=== PATIENT | female | born 1955 | race Caucasian/White ===

== ENCOUNTER 2019-09-02 12:19 | Emergency (ER) | payer BC ==
[2019-09-02 14:16] LABS: Absolute Lymphocytes (CBC) 4.6 K/uL (0.7-4.9); Basophils % 0.8 % (0-1.3); Hematocrit 43.6 % (36.0-45.0); Lymphocytes % 37.9 % (15.3-44.8); MPV 7.8 fL (7.6-11.3); RBC Red Blood Cell Count 5.04 M/uL (3.86-4.86)
--- NOTE | 2019-09-02 14:17 | RAD REPORT ---
EXAM DESCRIPTION: US - Abdomen Exam Limited - 09/02/2019 1:48 pm CLINICAL HISTORY: Abdominal pain. COMPARISON: None. FINDINGS: The gallbladder wall is not thickened. A gallstone is not seen. The biliary tree is normal caliber. IMPRESSION: Unremarkable gallbladder ultrasound.
[2019-09-02] MEDS ORDERED: NA CHLORIDE 0.9% 1,000 ML ONE (14:19)
[2019-09-02 14:33] LABS: Urine Blood NEGATIVE (NEG); Urine Glucose NEGATIVE (NEG); Urine Protein NEGATIVE (NEG)
[2019-09-02 14:36] LABS: ALT/SGPT 36 U/L (12-78); AST/SGOT 22 U/L (15-37); Albumin 3.4 g/dL (3.4-5.0); Alkaline Phosphatase 90 U/L (45-117); BUN Blood Urea Nitrogen 7 mg/dL (7-18); Bicarbonate 27 mmol/L (21-32); Bilirubin Direct < 0.1 mg/dL (0-0.2); Bilirubin Total 0.3 mg/dL (0.2-1.0); Glucose Level 62 mg/dL (74-106); Lipase 75 U/L (73-393); Potassium 3.8 mmol/L (3.5-5.1); Protein, Total 7.5 g/dL (6.4-8.2); Sodium Level 140 mmol/L (136-145)
--- NOTE | 2019-09-02 15:18 | RAD REPORT ---
EXAM DESCRIPTION: CT - Abdomen Pelvis W Contrast - 09/02/2019 2:54 pm CLINICAL HISTORY: ABD PAIN COMPARISON: No comparisons TECHNIQUE: Biphasic, helical CT imaging of the abdomen and pelvis was performed following 100 ml non -ionic IV contrast. No oral contrast given. All CT scans are performed using dose optimization technique as appropriate and may include automated exposure control or mA/KV adjustment according to patient size. FINDINGS: No suspicious findings in the lung bases. The liver, spleen, and pancreas show no suspicious findings. Gallbladder and biliary tree are also wi thout suspicious finding. Renal function is symmetric. No pyelonephritis or acute renal parenchymal process. There is minimal d ilatation of the right collecting system when compared to the left. A punctate 2 millimeter calcifica tion is seen in the pelvis believed to be adjacent to but not within the ureter. The patient has li ral phleboliths. The kidneys show no solid mass lesion. No bladder abnormalities. No adrenal abnormal ities. Uterus absent. Ovaries are absent or atrophic. No adnexal mass. Stomach and small bowel show no acute findings. Moderate stool volume present in the colon from cecum through descending colon. Higgins of the rectum and distal most sigmoid colon show slight thickening w ith stranding extending to the adjacent fat. No focal mass. This is most likely a mild colitis. Patie nt has very minimal diverticulosis more proximally in the colon. No free air, free fluid or pneumatosis. No hernia, mass or bulky lymphadenopathy. No suspicious bony findings. IMPRESSION: Mild colitis pattern involving the rectum and distal most sigmoid colon. No mass, free a ir or other emergent finding.
--- NOTE | 2019-09-02 15:35 | ER ---
Nurse's Notes [facility] Name: Iris Jerome Age: 64 yrs Sex: Female : 1955 Arrival Date: 09/02/2019 Time: 12:25 Bed 24 Private MD: Diagnosis: Diarrhea, unspecified;Left sided colitis Presentation: 09/02 12:45 Presenting complaint: Patient states: Diarrhea for 16 days. On Friday I called my PCP, charmaine and they told me to start Imodium. It helped a little bit but it starts all over again. I called them again today and they think it might be my gall bladder. I am having dull pain on my R upper abdomen, that comes and goes. Reports fever in the beginning but not at this time. Denies N/V, urinary symptoms. Transition of care: patient was not received from another setting of care. Onset of symptoms was September 02, 2019. Risk Assessment: Do you want to hurt yourself or someone else? Patient reports no desire to harm self or others. Initial Sepsis Screen: Does the patient meet any 2 criteria? No. Patient's initial sepsis screen is negative. Does the patient have a suspected source of infection? No. Patient's initial sepsis screen is negative. Care prior to arrival: None. 12:45 Method Of Arrival: Ambulatory ca1 12:45 Acuity: ALICE 3 ca1 Historical: - Allergies: 12:50 No Known Allergies; ca1 - PMHx: 12:50 Hypertension; Diabetes - NIDDM; ca1 - PSHx: 12:50 Knee surgery; Hysterectomy; Tubal ligation; ca1 - Immunization history:: Adult Immunizations up to date, Pneumococcal vaccine is up to date, Flu vaccine is up to date. - Coronavirus screen:: The patient has NOT traveled to [place], [place], or [place] in the past 14 days. The patient has NOT had contact with known/suspected case of Coronavirus?. - Social history:: Smoking status: Patient denies any tobacco usage or history of. - Family history:: not pertinent. - Ebola Screening: : Patient negative for fever greater than or equal to 101.5 degrees Fahrenheit, and additional compatible Ebola Virus Disease symptoms Patient denies exposure to infectious person Patient denies travel to an Ebola-affected area in the 21 days before illness onset No symptoms or risks identified at this time. - Hospitalizations: : No recent hospitalization is reported. Screenin:22 Abuse screen: Denies threats or abuse. Nutritional screening: No deficits noted. vc Tuberculosis screening: No symptoms or risk factors identified. Fall Risk None identified. Assessment: 13:00 General: Appears in no apparent distress. comfortable, ill, Behavior is calm, vc cooperative, appropriate for age. Pain: Complains of pain in right upper quadrant. Neuro: Level of Consciousness is awake, alert, obeys commands, Oriented to person, place, time. Cardiovascular: Patient's skin is warm and dry. Respiratory: Airway is patent Respiratory effort is even, unlabored. GI: Abdomen is non-distended, Stools are reported to be diarrhea. : Urine is clear. EENT: No signs and/or symptoms were reported regarding the EENT system. Derm: Skin is intact, is healthy with good turgor. Musculoskeletal: Circulation, motion, and sensation intact. Range of motion: intact in all extremities. 13:21 Reassessment: Patient and/or family updated on plan of care and expected duration. Pain vc level reassessed. Patient is alert, oriented x 3, equal unlabored respirations, skin warm/dry/pink. Provider at bedside. 13:30 Reassessment: Patient to US via Wheelchair. vc 13:47 Reassessment: Back from US. vc 14:27 Reassessment: Patient and/or family updated on plan of care and expected duration. Pain vc level reassessed. Patient is alert, oriented x 3, equal unlabored respirations, skin warm/dry/pink. IV infiltrated. IV removed, tip intact. 15:27 Reassessment: provider at bedside. vc 16:30 Reassessment: Patient and/or family updated on plan of care and expected duration. Pain vc level reassessed. Patient is alert, oriented x 3, equal unlabored respirations, skin warm/dry/pink. Neuro: Level of Consciousness is awake, alert, obeys commands, Oriented to person, place, time, situation. 16:37 Reassessment: Antibiotics infusing. vc Vital Signs: 12:50 BP 100 / 63; Pulse 87; Resp 19 S; Temp 98.1(O); Pulse Ox 95% on R/A; Weight 75.75 kg ca1 (R); Height 5 ft. 6 in. (167.64 cm) (R); Pain 0/10; 14:00 BP 105 / 64; Pulse 90; Resp 18; Pulse Ox 97% on R/A; vc 15:00 BP 108 / 66; Pulse 85; Resp 19; Pulse Ox 97% on R/A; vc 16:00 BP 102 / 63; Pulse 88; Resp 18; Pulse Ox 100% on R/A; vc 12:50 Body Mass Index 26.95 (75.75 kg, 167.64 cm) ca1 ED Course: 12:25 Patient arrived in ED. ag5 12:48 Triage completed. ca1 12:50 Arm band placed on right wrist. ca1 12:56 Glo Perez, RN is Primary Nurse. vc 13:10 Jose Jackson MD is Attending Physician. rn 13:22 Patient has correct armband on for positive identification. Bed in low position. Call vc light in reach. 13:54 US Abdomen Limited In Process Unspecified. EDMS 14:10 Inserted saline lock: 22 gauge in right antecubital area, using aseptic technique. vc Blood collected. 14:30 Inserted saline lock: 22 gauge in right forearm, using aseptic technique. jp3 14:55 CT Abd/Pelvis - IV Contrast Only In Process Unspecified. EDMS 16:55 No provider procedures requiring assistance completed. IV discontinued, intact, vc bleeding controlled, No redness/swelling at site. Pressure dressing applied. Administered Medications: 14:10 Drug: NS 0.9% 1000 ml Route: IV; Rate: 1000 ml; Site: right antecubital; vc 15:40 Drug: Cipro 400 mg Volume: 200 ml; Route: IVPB; Infused Over: 60 mins; Site: right vc wrist; 15:40 Drug: Flagyl 500 mg Volume: 100 ml; Route: IVPB; Rate: 200 ml/hr; Infused Over: 30 vc mins; Site: right wrist; Outcome: 15:34 Discharge ordered by . rn 16:55 Discharged to home ambulatory. vc 16:55 Condition: good 16:55 Discharge instructions given to patient, Instructed on discharge instructions, follow up and referral plans. medication usage, Demonstrated understanding of instructions, follow-up care, medications, Prescriptions given X 2. 16:56 Patient left the ED. vc Signatures: Dispatcher [employer] EDMS Jose Jackson MD MD rn Pisarski, Jacob jp3 Desiree Gayle RN RN ca1 Mckenna Tao ag5 Glo Perez RN RN vc Corrections: (The following items were deleted from the chart) 13:21 Reassessment: Provider at bedside. vc cabrera 14:27 Reassessment: IV infiltrated. IV removed, tip intact. vc
--- NOTE | 2019-09-02 15:35 | EDPHYS ---
Physician Documentation [facility] Name: Iris Jerome Age: 64 yrs Sex: Female : 1955 Arrival Date: 09/02/2019 Time: 12:25 Bed 24 Private MD: ED Physician Jose Jackson HPI: 09/02 14:53 This 64 yrs old Female presents to ER via Ambulatory with complaints of rn Diarrhea, Side Pain. 14:53 The patient presents to the emergency department with diarrhea, abdominal pain, of the rn right upper quadrant. 14:54 Onset: The symptoms/episode began/occurred 2 week(s) ago. Possible causes: unknown. The rn symptoms are aggravated by nothing. The symptoms are alleviated by nothing. Severity of symptoms: At their worst the symptoms were mild in the emergency department the symptoms are unchanged. The patient has not experienced similar symptoms in the past. The patient has not recently seen a physician. 14:54 Reports diarrhea for 2 weeks, non-bloody, no fever, no vomiting, + mild right sided abd rn pain. No travel. . Historical: - Allergies: 12:50 No Known Allergies; ca1 - PMHx: 12:50 Hypertension; Diabetes - NIDDM; ca1 - PSHx: 12:50 Knee surgery; Hysterectomy; Tubal ligation; ca1 - Immunization history:: Adult Immunizations up to date, Pneumococcal vaccine is up to date, Flu vaccine is up to date. - Coronavirus screen:: The patient has NOT traveled to [place], [place], or [place] in the past 14 days. The patient has NOT had contact with known/suspected case of Coronavirus?. - Social history:: Smoking status: Patient denies any tobacco usage or history of. - Family history:: not pertinent. - Ebola Screening: : Patient negative for fever greater than or equal to 101.5 degrees Fahrenheit, and additional compatible Ebola Virus Disease symptoms Patient denies exposure to infectious person Patient denies travel to an Ebola-affected area in the 21 days before illness onset No symptoms or risks identified at this time. - Hospitalizations: : No recent hospitalization is reported. ROS: 14:54 Constitutional: Negative for fever, chills, and weight loss, Eyes: Negative for injury, rn pain, redness, and discharge, Cardiovascular: Negative for chest pain, palpitations, and edema, Respiratory: Negative for shortness of breath, cough, wheezing, and pleuritic chest pain, Abdomen/GI: Negative for nausea, vomiting, and constipation, MS/Extremity: Negative for injury and deformity, Skin: Negative for injury, rash, and discoloration, Neuro: Negative for headache, weakness, numbness, tingling, and seizure. Exam: 14:54 Constitutional: This is a well developed, well nourished patient who is awake, alert, rn and in no acute distress. Head/Face: Normocephalic, atraumatic. ENT: MMM Cardiovascular: Regular rate and rhythm. No pulse deficits. Respiratory: No increased work of breathing, no retractions or nasal flaring. Abdomen/GI: soft, non-tender, non-distended MS/ Extremity: Pulses equal, no cyanosis. Neurovascular intact. Full, normal range of motion. Equal circumference. Neuro: Awake and alert, GCS 15, oriented to person, place, time, and situation. Cranial nerves II-XII grossly intact. Motor strength 5/5 in all extremities. Sensory grossly intact. Vital Signs: 12:50 BP 100 / 63; Pulse 87; Resp 19 S; Temp 98.1(O); Pulse Ox 95% on R/A; Weight 75.75 kg ca1 (R); Height 5 ft. 6 in. (167.64 cm) (R); Pain 0/10; 14:00 BP 105 / 64; Pulse 90; Resp 18; Pulse Ox 97% on R/A; vc 15:00 BP 108 / 66; Pulse 85; Resp 19; Pulse Ox 97% on R/A; vc 16:00 BP 102 / 63; Pulse 88; Resp 18; Pulse Ox 100% on R/A; vc 12:50 Body Mass Index 26.95 (75.75 kg, 167.64 cm) ca1 MDM: 13:10 Patient medically screened. rn 15:31 Differential diagnosis: Nonspecific abd pain, colitis. Data reviewed: vital signs, rn nurses notes, lab test result(s), radiologic studies, CT scan, ultrasound. Counseling: I had a detailed discussion with the patient and/or guardian regarding: the historical points, exam findings, and any diagnostic results supporting the discharge/admit diagnosis, lab results, radiology results, the need for outpatient follow up, to return to the emergency department if symptoms worsen or persist or if there are any questions or concerns that arise at home. Response to treatment: the patient's symptoms have mildly improved after treatment, and as a result, I will discharge patient. Special discussion: Based on the patient's Hx, exam, and Dx evaluation, there is no indication for emergent surgery or inpatient Tx. It is understood by the patient/guardian that if the Sx's persist or worsen they need to return immediately for re-evaluation. I discussed with the patient/guardian in detail that at this point there is no indication for admission to the hospital. It is understood, however, that if the symptoms persist or worsen the patient needs to return immediately for re-evaluation. 09/02 13:23 Order name: Basic Metabolic Panel; Complete Time: 14:54 09/02 13:23 Order name: CBC with Diff rn 09/02 13:23 Order name: Creatinine for Radiology; Complete Time: 14:54 09/02 13:23 Order name: Hepatic Function; Complete Time: 14:54 09/02 13:23 Order name: Lipase; Complete Time: 14:54 09/02 13:23 Order name: Stool Culture rn 09/02 13:23 Order name: IV Saline Lock; Complete Time: 14:14 09/02 13:23 Order name: US Abdomen Limited; Complete Time: 14:54 09/02 13:23 Order name: CT Abd/Pelvis - IV Contrast Only; Complete Time: 15:19 09/02 13:40 Order name: Urine Dipstick--Ancillary (enter results); Complete Time: 14:54 09/02 13:40 Order name: Urine --Ancillary (enter results); Complete Time: 14:54 09/02 13:23 Order name: Labs collected and sent; Complete Time: 14:14 rn Administered Medications: 14:10 Drug: NS 0.9% 1000 ml Route: IV; Rate: 1000 ml; Site: right antecubital; vc 15:40 Drug: Cipro 400 mg Volume: 200 ml; Route: IVPB; Infused Over: 60 mins; Site: right vc wrist; 15:40 Drug: Flagyl 500 mg Volume: 100 ml; Route: IVPB; Rate: 200 ml/hr; Infused Over: 30 vc mins; Site: right wrist; Disposition: 09/02/19 15:34 Discharged to Home. Impression: Diarrhea, unspecified, Left sided colitis. - Condition is Stable. - Discharge Instructions: Diarrhea, Adult, Colitis. - Prescriptions for Cipro 500 mg Oral Tablet - take 1 tablet by ORAL route every 12 hours for 10 days; 20 tablet. Flagyl 500 mg Oral Tablet - take 1 tablet by ORAL route every 8 hours for 10 days; 30 tablet. - Medication Reconciliation Form, Thank You Letter, Antibiotic Education, Prescription Opioid Use form. - Follow up: Private Physician; When: As needed; Reason: Recheck today's complaints, Re-evaluation by your physician. - Problem is new. - Symptoms have improved. Signatures: Dispatcher [employer] EDMS Jose Jackson MD MD rn Irwin, Desiree RN RN ca1 Glo Perez RN RN vc Corrections: (The following items were deleted from the chart) 16:56 15:34 09/02/2019 15:34 Discharged to Home. Impression: Diarrhea, unspecified; Left vc sided colitis. Condition is Stable. Forms are Medication Reconciliation Form, Thank You Letter, Antibiotic Education, Prescription Opioid Use. Follow up: Private Physician; When: As needed; Reason: Recheck today's complaints, Re-evaluation by your physician. Problem is new. Symptoms have improved. rn
[2019-09-02] MEDS ORDERED: CIPROFLOXACIN 400mg IV 400 MG/200 ML BAG IV ONE (15:40)
[2019-09-02] MEDS ORDERED: METRONIDAZOLE 500mg IVPB 500 MG/100 ML BAG IV ONE (15:41)
[2019-09-02 20:21] VITALS: BP 100/63; TEMP 98.1; O2SAT 95
== END 2019-09-02 16:56 | disposition home or self-care (01) ==
LOC: ER 12:19
DX: K51.50 Left sided colitis without complications (principal); I10 Essential (primary) hypertension
CPT/HCPCS: 87045; 85025; 80048; 36415; 81025; 80076; 87046; 81003; 83690; 74177; 76705; 96375; 96374; 99284; Q9967; J7030; J0744